=== PATIENT | female | born 1985 | race American Indian/Alaskan Native ===

== ENCOUNTER 2016-08-27 01:37 | Emergency (ER) | payer SELFPAY ==
--- NOTE | 2016-08-27 05:37 | Emergency Department Report ---
ED General Adult HPI - General Chief complaint: Skin Rash Stated complaint: RASH OVER BODY Time Seen by Provider: 08/27/16 05:22 Source: patient Mode of arrival: Ambulatory Limitations: No Limitations - History of Present Illness Initial comments: Per patient triage, patient is here today for a rash for one day. She describes the rash as a lot of black little hairs kind come out of her body. States that they're very itchy. States that the rash was on her fingers, arms, chest, neck. Patient did not take anything for such. Patient says she called the nurse hotline and they told her to go to the ER. Patient states that she is feeling better now but still has some of the spots. - Related Data Previous Rx's Medication Instructions Recorded Last Taken Type Permethrin [Elimite] 60 gm TP ONCE #60 gm 08/27/16 Unknown Rx Allergies Allergy/AdvReac Type Severity Reaction Status Date / Time methylprednisolone sodium Allergy Hives Verified 08/27/16 01:44 succinate [From Solu-Medrol] ED Review of Systems ROS: Stated complaint: RASH OVER BODY Other details as noted in HPI Constitutional: denies: chills, fever Eyes: denies: eye pain, eye discharge, vision change ENT: denies: ear pain, throat pain Respiratory: denies: cough, shortness of breath, wheezing Cardiovascular: denies: chest pain, palpitations Endocrine: no symptoms reported Gastrointestinal: denies: abdominal pain, nausea, diarrhea Genitourinary: denies: urgency, dysuria, discharge Musculoskeletal: denies: back pain, joint swelling, arthralgia Skin: rash, pruritus. denies: lesions Neurological: denies: headache, weakness, paresthesias Psychiatric: denies: anxiety, depression Hematological/Lymphatic: denies: easy bleeding, easy bruising ED Past Medical Hx - Past Medical History Previous Medical History?: No - Surgical History Past Surgical History?: No - Social History Smoking Status: Current Every Day Smoker Substance Use Type: Alcohol - Medications Home Medications: Home Medications Medication Instructions Recorded Confirmed Last Taken Type Permethrin [Elimite] 60 gm TP ONCE #60 gm 08/27/16 Unknown Rx ED Physical Exam - General Limitations: No Limitations General appearance: alert, in no apparent distress - Head Head exam: Present: atraumatic, normocephalic - Eye Eye exam: Present: normal appearance - ENT ENT exam: Present: mucous membranes moist - Neck Neck exam: Present: normal inspection - Respiratory Respiratory exam: Present: normal lung sounds bilaterally. Absent: respiratory distress, decreased breath sounds - Cardiovascular Cardiovascular Exam: Present: regular rate, normal rhythm, normal heart sounds. Absent: systolic murmur, diastolic murmur, rubs, gallop - GI/Abdominal GI/Abdominal exam: Present: soft, normal bowel sounds - Extremities Exam Extremities exam: Present: normal inspection - Back Exam Back exam: Present: normal inspection - Neurological Exam Neurological exam: Present: alert, oriented X3 - Psychiatric Psychiatric exam: Present: normal affect, normal mood - Skin Skin exam: Present: warm, dry, intact, normal color, rash (very small diffuse black lesions noted to patient's neck, lower abdomen concerning for possible mite infestation. No induration, erythematous, urticaria noted.). Absent: erythema, urticaria ED Course Vital Signs 08/27/16 01:44 Temperature 98.6 F Pulse Rate 81 Respiratory 20 Rate Blood Pressure 112/67 O2 Sat by Pulse 100 Oximetry ED Medical Decision Making - Medical Decision Making Patient is nontoxic and hemodynamically stable. Patient's history and rash might be more consistent with possible mite infestation. Some of the patient's symptoms have resolved but she still has some lesions in areas of initial complaint. I will treat her with a course of Elimite and refer her to follow back up with her primary care doctor if symptoms fail to resolve or worsen. Patient is agreement with treatment plan patient is stable for discharge. Critical care attestation.: If time is entered above; I have spent that time in minutes in the direct care of this critically ill patient, excluding procedure time. ED Disposition Clinical Impression: Rash, Itchy skin Disposition: DC-01 TO HOME OR SELFCARE Is pt being admited?: No Does the pt Need Aspirin: No Condition: Good Instructions: Scabies (ED) Prescriptions: Permethrin [Elimite] 60 gm TP ONCE #60 gm Referrals: PRIMARY CARE, [Primary Care Provider] - 3-5 Days Time of Disposition: 05:41
[2016-08-27 06:04] VITALS: BP 128/76
== END 2016-08-27 05:50 | disposition home or self-care (01) ==
LOC: ED 01:37
DX: L29.9 Pruritus, unspecified (principal); R21 Rash and other nonspecific skin eruption; F17.200 Nicotine dependence, unspecified, uncomplicated
CPT/HCPCS: 99282